=== PATIENT | male | born 1950 | race Caucasian/White ===

== ENCOUNTER 2017-01-25 13:11 | Inpatient (IN) ==
[2017-01-25] MEDS ORDERED: *HR* Labetalol 100 MG/20 ML MDV IVP ONE (13:28)
--- NOTE | 2017-01-25 13:32 | Emergency Department Note ---
Disposition Clinical Impression: Dysarthria Disposition: Admitted As Inpatient Condition: Good Referrals: Logan Alicia MD [Primary Care Provider] - Forms: ED Satisfaction Letter, Work/School Release Neuro HPI - General Chief Complaint: ED General Medical Stated Complaint: "tongue felt thick" Time Seen by Provider: 01/25/17 13:13 Source: EMS Limitations: no limitations - History of Present Illness HPI Narrative: 66-year-old male no medical history presents to the ER due to "swollen tongue". Patient states roughly 1 hour prior to arrival he was sitting and felt like his tongue was swollen. He states he also felt disoriented at that time. He states that he went up to get his who reports whenever she saw him that he was slurring words. He was making sense and was able to understand her at that time. He states his right arm felt numb as well. Denies a prior history of CVA or TIA. Denies any other numbness tingling or paresthesias. No headaches. No visual changes. Upon arrival patient was deemed a stroke alert candidate and taken to CT for emergent evaluation. Onset of Symptoms Date: 01/25/17 Onset of Symptoms Time: 12:25 Symptom Onset Unknown: No Location: speech, right arm History of same: No Severity: mild Quality: numbness Symptoms Improving: Yes Improves with: time Worsens with: none Context: sudden onset On Anticoagulants: No Associated symptoms: Reports: denies other symptoms Treatments Prior to Arrival: none - Related Data Home Medications: Home Medications Medication Instructions Recorded Confirmed Gabapentin [Neurontin] 300 mg PO DAILY PRN 01/25/17 01/25/17 Ibuprofen [Ibuprofen] 800 mg PO Q8H PRN 01/25/17 01/25/17 Allergies/Adverse Reactions: Allergies Allergy/AdvReac Type Severity Reaction Status Date / Time No Known Allergies Allergy Verified 01/25/17 13:58 All systems ED: reviewed and negative except as stated. Cardiovascular: Denies: chest pain Respiratory: Denies: dyspnea Gastrointestinal: Denies: abdominal pain Neurological: Reports: numbness. Denies: headache, weakness, paresthesias Past Medical History - Past Medical History Attestation: Yes The following information was validated with the patient. Source: patient Medical history: Reports: no medical history Psychiatric history: Reports: no psych history - Social History Smoking Status: Current every day smoker Smokeless Tobacco Status: No Alcohol use: Reports: occasionally Drug use: Reports: none Physical Exam - General Limitations: no limitations General appearance: alert, in no apparent distress - Head Head exam: atraumatic, normocephalic, normal inspection - Eye Eye exam: Present: normal appearance, PERRL, EOMI - ENT ENT exam: normal exam - Neck Neck exam: Present: normal inspection, full ROM - Chest Chest inspection: Present: normal inspection, symmetric chest wall rise - Respiratory Respiratory exam: Present: normal lung sounds bilaterally - Cardiovascular Cardiovascular exam: Present: regular rate, normal rhythm, normal heart sounds - Abdominal Exam Abdominal exam: Present: soft, Non-Tender. Absent: tenderness, distention, rigidity - Extremities Exam Extremities exam: Present: normal inspection, full ROM - Expanded Upper Extremity Exam Shoulder exam: Present: normal inspection, full ROM Arm exam: Present: normal inspection, full ROM Elbow exam: Present: normal inspection, full ROM Forearm/Wrist exam: Present: normal inspection, full ROM Hand exam: Present: normal inspection, full ROM Vascular exam: Normal: radial pulse - Expanded Lower Extremity Exam Hip/Pelvis exam: Present: normal inspection, full ROM Upper leg exam: Present: normal inspection, full ROM Knee exam: Present: normal inspection, full ROM Lower leg exam: Present: normal inspection, full ROM Ankle exam: Present: normal inspection, full ROM Foot/toe exam: Present: normal inspection, full ROM Neurovascular/Tendon exam: Absent: motor deficit, sensory deficit - Neurological Exam Neurological exam: Present: alert, oriented X3, CN II-XII intact. Absent: motor sensory deficit - Expanded Neurological Exam Patient oriented to: Present: person, place, time Speech: Present: expressive aphasia (mild dysarthria) Cranial nerves: EOM function (II, III, IV, ): Normal, facial sensation (V): Normal, spinal accessory function (XI): Normal, tongue deviation (XII): Normal Cerebellar function: finger to nose: Normal, heel to rashid: Normal Motor strength - LUE: 5/5 Motor strength - RUE: 5/5 Motor strength - LLE: 5/5 Motor strength - RLE: 5/5 Sensory exam upper extremity: light touch: Normal Sensory exam lower extremity: light touch: Normal Coma Scale Eye Opening: Spontaneous Coma Scale Motor Response: Obeys Commands Coma Scale Verbal Response: Oriented Coma Scale Total: 15 - Psychiatric Psychiatric exam: Present: normal affect - Skin Skin exam: Present: warm, dry, intact Course Course Narrative: Patient seen and examined. NIH of 1 given his mild dysarthria. Stroke alert called. He is also profoundly hypertensive here. Taken to CT scan for evaluation. - Reevaluation(s) Reevaluation #1: Patient evaluated by [facility] stroke neurologist. We agree that his symptoms are improving and the risks of TPA administration outweigh the potential benefit. Family understands and is in agreement with this plan. His hypertension has resolved here without intervention. He is in agreement with being admitted here for neurologic evaluation. - Consultations Consultation #1: I spoke with the on-call stroke neurologist at [facility]. Discussed the patient's history exam and interventions today. They agreed to see the patient by tele- robot. Vital Signs Temperature 98.3 F 01/25/17 13:13 Pulse Rate 59 01/25/17 13:13 Respiratory Rate 16 01/25/17 13:13 Blood Pressure 195/113 01/25/17 13:13 O2 Sat by Pulse Oximetry 99 01/25/17 13:13 Temperature 98.3 F 01/25/17 13:13 Pulse Rate 61 01/25/17 13:53 Respiratory Rate 18 01/25/17 13:53 Blood Pressure 168/89 01/25/17 13:53 O2 Sat by Pulse Oximetry 96 01/25/17 13:38 Oxygen Delivery Oxygen Delivery Room Air Neuro Symptoms/Deficit - MDM Narrative Medical decision making narrative: 66-year-old male presents to the ER due to dysarthria and right upper extremity weakness. Abrupt onset roughly 1 hour prior to arrival. No history of CVA or TIA in the past. He had an initial NIH of 1 here. Profoundly hypertensive which resolved without intervention. CT scan images no acute abnormalities. Case discussed with evaluation by [facility] stroke neurologist with no recommendation for TPA given his improved symptoms while here in the department. Patient agreeable with staying here for admission and neurologic evaluation. - Lab Data Lab results reviewed: Yes I reviewed the patient's lab results. Result diagrams: 01/25/17 13:32 01/25/17 13:32 Lab Results 01/25/17 01/25/17 01/25/17 Range/Units 13:32 13:32 13:32 WBC 8.9 (4.3-11.1) K/mcL RBC 4.23 (4.19-5.50) M/mcL Hgb 14.4 (12.9-16.9) g/dL Hct 42.2 (37.5-50.1) % MCV 99.8 (83.0-100.0) fL MCH 34.0 H (28.0-33.3) pg MCHC 34.1 (31.6-35.5) g/dL RDW 13.1 (11.5-14.5) % Plt Count 283 (140-400) K/mcL MPV 10.0 (9.4-12.4) fL Immature Gran % 0.2 (0-4) % Seg Neutrophils % 62.1 % Lymphocytes % 26.9 % Monocytes % 7.4 % Eosinophils % 2.8 % Basophils % 0.6 % Neutrophils # 5.5 (1.6-8.9) K/mcL Lymphocytes # 2.4 (0.6-4.6) K/mcL Monocytes # 0.7 (0.0-1.3) K/mcL Eosinophils # 0.3 (0.0-0.6) K/mcL Basophils # 0.1 (0.0-0.2) K/mcL Immature Plt Fraction 5.5 (1.1-6.1) % PT 11.6 (9.4-12.1) Seconds INR 1.1 APTT 31.3 (26.0-36.0) Seconds Sodium 141 (136-145) mEq/L Potassium 3.7 (3.5-4.5) mEq/L Chloride 108 (98-109) mEq/L Carbon Dioxide 26 (19-29) mEq/L BUN 14 (8-26) mg/dL Creatinine 0.79 (0.72-1.25) mg/dL Est GFR ( Amer) > 60 (> 60) Est GFR (Non-Af Amer) > 60 (> 60) BUN/Creatinine Ratio 18 (6-26) Glucose 113 H (70-99) mg/dL POC Glucose (58-89) Calculated Osmolality 293 (280-300) Calcium 9.3 (8.6-10.8) mg/dL Troponin I (0-0.03) ng/mL 01/25/17 01/25/17 Range/Units 13:32 13:37 WBC (4.3-11.1) K/mcL RBC (4.19-5.50) M/mcL Hgb (12.9-16.9) g/dL Hct (37.5-50.1) % MCV (83.0-100.0) fL MCH (28.0-33.3) pg MCHC (31.6-35.5) g/dL RDW (11.5-14.5) % Plt Count (140-400) K/mcL MPV (9.4-12.4) fL Immature Gran % (0-4) % Seg Neutrophils % % Lymphocytes % % Monocytes % % Eosinophils % % Basophils % % Neutrophils # (1.6-8.9) K/mcL Lymphocytes # (0.6-4.6) K/mcL Monocytes # (0.0-1.3) K/mcL Eosinophils # (0.0-0.6) K/mcL Basophils # (0.0-0.2) K/mcL Immature Plt Fraction (1.1-6.1) % PT (9.4-12.1) Seconds INR APTT (26.0-36.0) Seconds Sodium (136-145) mEq/L Potassium (3.5-4.5) mEq/L Chloride (98-109) mEq/L Carbon Dioxide (19-29) mEq/L BUN (8-26) mg/dL Creatinine (0.72-1.25) mg/dL Est GFR ( Amer) (> 60) Est GFR (Non-Af Amer) (> 60) BUN/Creatinine Ratio (6-26) Glucose (70-99) mg/dL POC Glucose 118 H (58-89) Calculated Osmolality (280-300) Calcium (8.6-10.8) mg/dL Troponin I 0.02 (0-0.03) ng/mL - Radiology Data Radiology results reviewed: Yes I reviewed the patient's radiology results. Head CT 01/25/17 13:23 IMPRESSION: No acute intracranial abnormality. Patchy small vessel white matter ischemic changes. Findings called to Glynn Izaguirre on 01/25/2017 at 1:40 p.m. D/ / Roberto Gregory MD / Roberto Gregory MD Interpreting Provider: Roberto Gregory MD Stroke Scale - Level of Consciousness LOC: Alert - LOC Questions LOC Questions: Answers both correctly - LOC Commands LOC Commands: Performs both correctly - Best Gaze Best Gaze: Normal - Visual Visual: No visual loss - Facial Palsy Facial Palsy: Normal - Motor Arms Motor Arm-Left: No drift for 10 seconds Motor Arm-Right: No drift for 10 seconds - Motor Legs Motor Leg-Left: No drift for 5 seconds Motor Leg-Right: No drift for 5 seconds - Limb Ataxia Limb Ataxia: Absent of affected limb too weak to perform exam - Sensory Sensory: Normal - Best Language Best Language: No aphasia - Dysarthria Dysarthria: Mild, slurs some words - Extinction and Inattention Extinction and Inattention: Normal - NIHSS Total Score NIHSS Total Score: 1 TPA Checklist - LKW: 3-4.5 hrs Add. Warnings/Precautions Patient/family understanding: The patient/family members have been counseled and understood the risk, benefit , and alternatives of treatment. Ashlie - Ashlie Situation: Demographics, MOA Background: Presenting Complaint, Relevant PMH, Meds, & Allergies Assessment: Course and respsone to treatment, Patient/Family Expectation, Pertinant Lab Results Recommendation: Barrier(s) to disposition, Recommendation based on pending studies, treatments, or consults Ashlie Report Given to: Dr. Genesis Dailey Repor Time: 14:39
[2017-01-25 13:38] LABS: Basophils # 0.1 K/mcL (0.0-0.2); Basophils % 0.6 %; Eosinophils # 0.3 K/mcL (0.0-0.6); Eosinophils % 2.8 %; Hematocrit 42.2 % (37.5-50.1); Hemoglobin 14.4 g/dL (12.9-16.9); Immature Granulocytes % 0.2 % (0-4); Immature Platelets 5.5 % (1.1-6.1); Lymphocytes # 2.4 K/mcL (0.6-4.6); Lymphocytes % 26.9 %; Mean Corpuscular HGB Conc 34.1 g/dL (31.6-35.5); Mean Corpuscular Volume 99.8 fL (83.0-100.0); Monocytes # 0.7 K/mcL (0.0-1.3); Monocytes % 7.4 %; Neutrophils # 5.5 K/mcL (1.6-8.9); Platelet Count 283 K/mcL (140-400); Red Blood Count 4.23 M/mcL (4.19-5.50); Red Cell Distribution Width 13.1 % (11.5-14.5); Segmented Neutrophils % 62.1 %
[2017-01-25 13:42] LABS: INR 1.1; Prothrombin Time 11.6 Seconds (9.4-12.1)
--- NOTE | 2017-01-25 13:44 | Emergency Department Note ---
START Narrative - START START: I examined this patient and my medical decision-making was reviewed with the Resident Physician. I agree with the documented findings, disposition and treatment plan as described except to the extent set forth below. 66 year old male states that about one hour he started to experincing "numbness/ thickness" to his tongue and states that he had slurred speech although he could understand her and she could undertand him although the words are slurred which have improved. Ally staet that last night he may have experienced an inablity to hold the remote with his right hand although that has improved. We have called a sTROKE ALERT. HCT (-) for intracranila bleed. [facility] neurolgoist has been consultted
[2017-01-25 13:45] LABS: Activated Partial Thrombo Time 31.3 Seconds (26.0-36.0)
[2017-01-25 13:50] LABS: BUN/Creatinine Ratio 18 (6-26); Blood Urea Nitrogen 14 mg/dL (8-26); Calcium 9.3 mg/dL (8.6-10.8); Carbon Dioxide 26 mEq/L (19-29); Chloride 108 mEq/L (98-109); Glucose 113 mg/dL (70-99); Osmolality,Calculated 293 (280-300); Potassium 3.7 mEq/L (3.5-4.5); Sodium 141 mEq/L (136-145); eGFR For African Americans > 60 (> 60); eGFR For Non-African Americans > 60 (> 60)
[2017-01-25] MEDS ORDERED: Aspirin 81 MG TAB.CHEW PO ONE (14:31)
[2017-01-25] MEDS ORDERED: Acetaminophen 325 MG TABLET PO PRN (17:33)
[2017-01-25] MEDS ORDERED: Naloxone 0.4 MG/ML INJ IVP PRN (17:33)
[2017-01-25] MEDS ORDERED: Gabapentin 300 MG CAPSULE PO PRN (17:37)
--- NOTE | 2017-01-25 17:44 | Internal Med History&Physical ---
Date of Encounter: 01/25/17 Time of Encounter: 17:40 Assessment and Plan (1) TIA (transient ischemic attack) Current visit: Yes Status: Acute 66/male No significant past medical history. Has a history of mild backache for which he is on gabapentin Was working this morning on computer. Between 11:30 AM and known he realizes that he has a slurred speech/weakness/ deviation of angle of mouth. Was brought to the emergency room by squad. Evaluated by emergency room and stroke code was called. CT head: Negative for any acute intracranial abnormality. Patient was seen by [facility]. Telemetry neurology department. No TPA recommended. Plan: Admit as inpatient: Patient needs frequent neuro checks and further workup for possible TIA. Neuro checks as ordered Aspirin/Lipitor. Lipid panel/CBC/CMP/coagulation studies tomorrow morning Echocardiogram Ultrasound carotid. MRI brain I have discussed this plan with the patient at length. Patient verbalizes understanding and does not have any questions at the time of conversation. Qualifiers: Transient cerebral ischemia type: unspecified Qualified Code(s): G45.9 - Transient cerebral ischemic attack, unspecified (2) Backache Current visit: Yes Status: Acute Patient is a chronic backache and we will resume his medication for the same. Qualifiers: Back pain location: back pain in unspecified location Chronicity: chronic Back pain laterality: unspecified Qualified Code(s): M54.9 - Dorsalgia, unspecified; G89.29 - Other chronic pain; G89.29 - Other chronic pain (3) DVT prophylaxis Current visit: Yes Status: Acute SCD Medical decision making: This patient has a moderate to severe risk of worsening in spite of being on appropriate medication due to the underlying nature of the disease. Internal Medicine - H&P: HPI Chief complaint: Possible stroke Admitted From: Emergency Dept Plans for Post Hospital Care: Home History of present illness: PCP: Dr. Alicia Brief past medical history: Severe backache for which patient is taking gabapentin. No other medical issues. History of present medical illness: This is a 66-year-old gentleman who was working on his computer this morning. Between 11:30 and noon, patient realizes that he has a sudden onset of heaviness in his tongue. Patient also noticed that his speech was slurred. Patient realizes that he is weak on his right side. The symptoms were really concerned to the patient and his . Because of this sudden onset of symptoms patient's called squad and then became to this hospital's emergency department for further evaluation. Patient denies chest pain, shortness of breath, nausea, vomiting, palpitation, abdominal pain, dizziness and diarrhea. Workup in the emergency room: Patient was evaluated in the emergency room. Basic labs were drawn. Stroke code was called. CT head was done. CT head was negative of any acute intracranial abnormality. Patient was evaluated by [facility] telemetry neurology Department. Apparently as per the patient , he was told that this is an episode which can be treated as a"warning sign" Reason for admission: Possibility of a TIA to rule out CVA. NI HSS score upon admission is 0 Family history: Non-contributory Of note: I have examined this patient in room 3B 37. Past Med Surg Social Fam HX - Past Medical History Medical history: no medical history Psychiatric history: no psych history - Social History Smoking Status: Current every day smoker Smokeless Tobacco Status: No Alcohol use: occasionally Drug use: none Internal Medicine - H&P: Meds Gabapentin [Neurontin] 300 mg PO DAILY PRN 01/25/17 [History] Ibuprofen [Ibuprofen] 800 mg PO Q8H PRN 01/25/17 [History] 3 Allergy/AdvReac Type Severity Reaction Status Date / Time No Known Allergies Allergy Verified 01/25/17 13:58 All Systems PM: A 10-system review of systems was performed and is negative for pertinent findings except as documented above in the HPI. - Constitutional Constitutional: no chills, no fever(s), no night sweats - EENT Eyes: no change in vision, no discharge, no pain, no photophobia Ears: no ear discharge, no ear pain, no tinnitus Nose, mouth and throat: no dysphagia, no nasal discharge, no neck pain, no sore throat - Cardiovascular Cardiovascular ROS IM: no chest pain, no diaphoresis, no dyspnea, no lightheadedness, no palpitations, no syncope - Respiratory Respiratory: no cough, no dyspnea, no wheezing, no excessive phlegm production - Gastrointestinal Gastrointestinal: no abdominal pain, no diarrhea, no hematemesis, no hematochezia, no melena, no nausea, no vomiting - Musculoskeletal Musculoskeletal ROS IM: no numbness, no tingling - Integumentary Integumentary IM: no rash, no unusual bruising - Neurological Neurological ROS: abnormal speech, behavioral changes, confusion, focal weakness , numbness, tingling, no convulsions, no tremor(s) - Hematologic/Lymphatic Hematologic/Lymphatic: no easy bruising - Constitutional Vitals: Temp Pulse Resp BP Pulse Ox 98.2 F 54 16 157/80 95 01/25/17 16:08 01/25/17 16:08 01/25/17 16:08 01/25/17 16:08 01/25/17 16:08 General appearance: Present: A&O X 3, pleasant, no acute distress, answers questions appropriately - Head Head exam: Present: atraumatic, normocephalic - Eye Eye exam: Present: PERRL, conjuntiva pink, sclera anicteric Pupils: Present: PERRL - Neck Neck exam general surgery: Present: supple, trachea midline. Absent: lymphadenopathy - Respiratory Respiratory exam: Present: CTAB. Absent: accessory muscle use, rales, rhonchi, wheezes - Cardiovascular Cardiovascular exam: Present: RRR, +S1, +S2. Absent: diastolic murmur, gallop, rubs, systolic murmur - GI/Abdominal GI/Abdominal exam: Present: normal bowel sounds, soft, no peritoneal signs. Absent: distended, tenderness - Extremities Exam Extremities exam: Present: warm, radial pulses palpable and symmetrical. Absent : calf tenderness, cyanotic, pedal edema - Neurological Exam Neurological exam: Present: CN II-XII intact, oriented X3, no focal deficits. Absent: pronater drift, facial droop, speech deficit - Skin Skin exam: Present: dry, intact Internal Med - H&P Results - Labs CBC & Chem 7: 01/25/17 13:32 01/25/17 13:32 Labs: All lab results discussed with the emergency room physician.
[2017-01-26 01:06] LABS: Basophils # 0.1 K/mcL (0.0-0.2); Basophils % 0.8 %; Eosinophils # 0.4 K/mcL (0.0-0.6); Eosinophils % 4.5 %; Hematocrit 41.2 % (37.5-50.1); Hemoglobin 14.1 g/dL (12.9-16.9); Immature Granulocytes % 0.1 % (0-4); Lymphocytes # 2.7 K/mcL (0.6-4.6); Lymphocytes % 33.8 %; Mean Corpuscular HGB Conc 34.2 g/dL (31.6-35.5); Mean Corpuscular Hemoglobin 33.7 pg (28.0-33.3); Mean Corpuscular Volume 98.3 fL (83.0-100.0); Mean Platelet Volume 10.4 fL (9.4-12.4); Monocytes # 0.7 K/mcL (0.0-1.3); Monocytes % 8.6 %; Neutrophils # 4.2 K/mcL (1.6-8.9); Platelet Count 268 K/mcL (140-400); Red Blood Count 4.19 M/mcL (4.19-5.50); Red Cell Distribution Width 13.1 % (11.5-14.5); Segmented Neutrophils % 52.2 %
[2017-01-26 01:24] LABS: Alanine Aminotransferase 16 Units/L (0-55); Albumin 3.3 g/dL (3.5-5.0); Albumin/Globulin Ratio 1.1 (1.1-2.2); Alkaline Phosphatase 102 Units/L (38-126); Aspartate Amino Transferase 17 Units/L (5-34); BUN/Creatinine Ratio 19 (6-26); Bilirubin,Total 0.6 mg/dL (0.2-1.2); Blood Urea Nitrogen 14 mg/dL (8-26); Calcium 9.3 mg/dL (8.6-10.8); Carbon Dioxide 24 mEq/L (19-29); Chloride 107 mEq/L (98-109); Chol/HDL Ratio 4.4 (0-4.9); Cholesterol 171 mg/dL (< 200); Globulin 3.1 g/dL (2.4-3.5); Glucose 85 mg/dL (70-99); HDL Cholesterol 39 mg/dL (40-59); INR 1.1; LDL Cholesterol,Calculated 104 mg/dL (0-99); Osmolality,Calculated 288 (280-300); Phosphorous 3.2 mg/dL (2.3-4.7); Potassium 3.8 mEq/L (3.5-4.5); Prothrombin Time 11.6 Seconds (9.4-12.1); Sodium 139 mEq/L (136-145); Total Protein 6.4 g/dL (6.0-8.3); Triglycerides 141 mg/dL (< 150); eGFR For African Americans > 60 (> 60); eGFR For Non-African Americans > 60 (> 60)
[2017-01-26 01:27] LABS: Activated Partial Thrombo Time 30.9 Seconds (26.0-36.0)
[2017-01-26] MEDS: Aspirin Enteric Coated 81 MG Tablet PO SCH (10:39)
--- NOTE | 2017-01-26 18:11 | Electrocardiograph Report ---
[address] [place], [place] [address] Test Date: 2017-01-25 Pat Name: Miguel Odom Department: [id number] Room: 3B37 Gender: M Precision Lathe Operator: TMR : 1950 Requested By: Glynn Izaguirre Order Number: [id number] Reading MD: Guzman Jacobson MD Measurements Intervals [place] Rate: 51 P: 33 [place]: 152 QRS: 7 QRSD: 108 T: 52 QT: 419 QTc: 395 Interpretive Statements SINUS BRADYCARDIA INCOMPLETE RIGHT BUNDLE BRANCH BLOCK Electronically Signed On 01-26-2017 18:09:41 EST by Guzman Jacobson MD
--- NOTE | 2017-01-26 18:13 | Internal Med Progress Note ---
Date of Encounter: 01/26/17 Time of Encounter: 13:00 - Assessment and plan (1) CVA (cerebral vascular accident) Status: Acute Assessment and plan: Patient presented with facial droop, dysarthria and weakness, currently resolved. CT head showed no acute abnormality. MRI brain showed findings small punctate infarcts in left parietal lobe in left MCA territory. Carotid Doppler showed significant stenosis in left ICA-ET to 99%. Follow-up echocardiogram. He should has been started on aspirin and statin. Lipid profile noted to be within normal limits. Case discussed with neurology, recommended adding Plavix and vascular surgery consult. Vascular surgery consulted, recommended outpatient follow-up for carotid endarterectomy in 4-6 weeks. Qualifiers: CVA mechanism: embolism Precerebral and cerebral artery: middle cerebral artery Laterality of affected vessel: left Qualified Code(s): I63.412 - Cerebral infarction due to embolism of left middle cerebral artery (2) Tobacco abuse Status: Chronic Assessment and plan: Smoking cessation counseling done for 4 minutes. Patient was explained about the harmful effects of smoking, especially with his critical carotid artery stenosis and current CVA. He verbalized understanding but is not too motivated to quit smoking at this time. Will use nicotine transdermal patch as needed. - Subjective Interval history: Feels better; resolved dysarthria, facial droop and confusion; no difficulty swallowing or speaking at this time; no blurred vision, focal weakness; - Constitutional Vitals: Temp Pulse Resp BP Pulse Ox 98.1 F 54 16 148/74 94 01/26/17 15:25 01/26/17 15:25 01/26/17 15:25 01/26/17 15:25 01/26/17 15:25 General appearance: Present: A&O X 3, answers questions appropriately - Respiratory Respiratory exam: Present: CTAB. Absent: accessory muscle use, rales, rhonchi, wheezes - Cardiovascular Cardiovascular exam: Present: RRR, +S1, +S2. Absent: diastolic murmur, gallop, rubs, systolic murmur - GI/Abdominal GI/Abdominal exam: Present: normal bowel sounds, soft, no peritoneal signs. Absent: distended, tenderness - Extremities Exam Extremities exam: Present: full ROM, warm, radial pulses palpable and symmetrical. Absent: calf tenderness, cyanotic, pedal edema - Neurological Exam Neurological exam: Present: CN II-XII intact, oriented X3, no focal deficits. Absent: pronater drift, facial droop, speech deficit Internal Medicine: Result - Labs CBC & Chem 7: 01/27/17 02:45 01/27/17 02:45 Labs: Short CBC 01/26/17 Range/Units 00:12 WBC 8.0 (4.3-11.1) K/mcL Hgb 14.1 (12.9-16.9) g/dL Hct 41.2 (37.5-50.1) % Plt Count 268 (140-400) K/mcL Neutrophils # 4.2 (1.6-8.9) K/mcL BMP 01/26/17 00:12 Sodium 139 Potassium 3.8 Chloride 107 Carbon Dioxide 24 BUN 14 Creatinine 0.75 Glucose 85 Calcium 9.3 Cardiac Enzymes 01/25/17 01/26/17 01/26/17 Range/Units 17:52 00:12 05:55 Troponin I 0.01 0.02 0.01 (0-0.03) ng/mL Liver Function 01/26/17 Range/Units 00:12 Total Bilirubin 0.6 (0.2-1.2) mg/dL AST 17 (5-34) Units/L ALT 16 (0-55) Units/L Alkaline Phosphatase 102 (38-126) Units/L Albumin 3.3 L (3.5-5.0) g/dL - ABG Interpretation ABG results: PT/INR, D-dimer PT 11.6 Seconds (9.4-12.1) 01/26/17 00:12 - Impressions Impressions Echocardiogram 01/25/17 17:38 Impressions: LVEF 55-60%. Normal LV chamber size, wall thickness and function. Mild left ventricular diastolic dysfunction. Normal right ventricular structure and function. No evidence of PFO with agitated saline contrast. Mild mitral regurgitation. No evidence of pulmonary hypertension. Left Ventricular Wall Motion: Rest Echo Findings All wall segments showed normal motion. Findings: Study Quality * Technically adequate exam. ECG Findings * Sinus bradycardia. Left Ventricle * LVEF 55-60%. * Normal LV chamber size, wall thickness and function. * Mild left ventricular diastolic dysfunction. Right Ventricle * Normal right ventricular structure and function. Left Atrium * Mildly dilated left atrium. Right Atrium * Normal right atrial size. Interatrial Septum * No evidence of PFO by color Doppler. * No evidence of PFO with agitated saline contrast. Aortic Valve * Trileaflet aortic valve with normal function. * No aortic regurgitation. * No aortic stenosis. Mitral Valve * Normal mitral valve structure. * Mild mitral regurgitation. * No mitral stenosis. Tricuspid Valve * Normal tricuspid valve structure and function. * Trace tricuspid regurgitation. * No evidence of pulmonary hypertension. Pulmonic Valve * Normal pulmonic valve structure and function. * Trace pulmonic regurgitation. Aorta * Normally sized aortic root. Pericardium * The pericardium appears normal. IVC * Normal IVC dimensions and inspiratory collapse. Pulmonary Artery * Normal visualized portions of the main pulmonary artery. Brain MRI 01/26/17 17:39 IMPRESSION: Approximately 5 punctate areas of restricted diffusion in the left parietal lobe suggesting an acute to subacute area of infarct in the left middle cerebral artery territory. No other areas of restricted diffusion are identified. [id number] chronic small vessel ischemic changes. Mild opacification of the mastoid air cells bilaterally. D/ / 01/26/2017 10:45:12 Oxana Manning MD / [facility] Interpreting Provider: Oxana Manning MD Consult Discharge Plan - Plan Instructions: Warfarin (By mouth), Carotid Artery Disease (DC), Ischemic Stroke (DC) Additional Instructions: F/up with PCP in 1-2 weeks F/up with Anticoagulation clinic in 3-4 days F/up with Vascular surgery in 3-4 weeks Referrals: Logan Alicia MD [Primary Care Provider] - (Appointment has been web requested ; our offices will call you with an appointment time and date. Thank You.) Prescriptions: Enoxaparin [Lovenox *PHARMACY WT BASED*] 70 mg SQ Q12HCO 7 Days mg Aspirin Enteric Coated [Aspirin EC] 81 mg PO DAILY #30 tablet. Atorvastatin [Lipitor] 40 mg PO HS #30 tablet Warfarin [Coumadin] 5 mg PO 1800 #15 tablet
--- NOTE | 2017-01-26 18:32 | Vascular/Endovasc Consult Note ---
Date of Encounter: 01/26/17 Time of Encounter: 18:00 Assessment and Plan (1) Stenosis of left internal carotid artery with cerebral infarction Current Visit: Yes Status: Acute The patient had neurologic symptoms longer than 5 minutes. He has evidence of lacunar infarcts along the left middle cerebral artery course. He has 80-99% critical stenosis of the left internal carotid artery. I have recommended left carotid endarterectomy after a period of anticoagulation to allow the infarcts to stabilize. He should follow-up with vascular surgery in 3-4 weeks. - History of Present Illness Consult date: 01/26/17 Consult reason: Carotid artery stenosis Chief complaint: Stroke History of present illness: Mr. Odom is a 66 year old male He sustained a neurologic event at home. He felt hot and dizzy. He experienced aphasia. This resulted in 5-10 minutes. He was transported to the emergency room for evaluation. It was felt at that time that he had residual facial weakness. He was admitted to the hospital. An MRI demonstrated acute and subacute infarcts along the left middle cerebral artery distribution. A follow-up carotid duplex demonstrated 80-99% stenosis at the origin of the left internal carotid artery. I personally reviewed the duplex evaluation and he does have peak systolic flow velocities of 529 cm/s with diastolic velocities over 200 cm/s. The findings are consistent with thromboembolic event from the carotid stenosis. Because of the acute strokes on MRI, I have recommended a period of anticoagulation with convalescent carotid endarterectomy in 4-6 weeks. Past Med Surg Social Fam HX - Past Medical History Medical history: no medical history Psychiatric history: no psych history - Social History Smoking Status: Current every day smoker Packs per day: 1 1/2 Packs Smokeless Tobacco Status: No Alcohol use: occasionally Drug use: none - Family History Mother Living Status: Age at : 78 Hx Family Cardiac Disorders: No Hx Family Respiratory Disorders: No Hx Family Cancer: No Hx Family GI Disorders: No Hx Family Genitourinary Disorders: No Hx Family Endocrine Disorder: No Hx Family Musculoskeletal Disorders: No Hx Family Neuromuscular Disorders: No Hx Family Neurologic Disorders: No Hx Family HEENT Disorders: No Hx Family Autoimmune Disorders: No Hx Family Reproductive Disorders: No Hx Family Psychosocial Disorders: No Father Living Status: Age at : 78 Hx Family Cardiac Disorders: Yes Hx Family Respiratory Disorders: No Hx Family Cancer: No Hx Family GI Disorders: No Hx Family Genitourinary Disorders: No Hx Family Endocrine Disorder: No Hx Family Musculoskeletal Disorders: No Hx Family Neuromuscular Disorders: No Hx Family Neurologic Disorders: No Hx Family HEENT Disorders: No Hx Family Autoimmune Disorders: No Hx Family Reproductive Disorders: No Hx Family Psychosocial Disorders: No Medications and Allergies Gabapentin [Neurontin] 300 mg PO DAILY PRN 01/25/17 [History] Ibuprofen [Ibuprofen] 800 mg PO Q8H PRN 01/25/17 [History] 3 Allergy/AdvReac Type Severity Reaction Status Date / Time No Known Allergies Allergy Verified 01/25/17 13:58 All Systems Review: A 10-system review of systems was performed and is negative for pertinent findings except as documented above in the HPI. Exam Vital Signs, Last 4 Hours Temp Pulse Resp BP Pulse Ox 01/26/17 15:25 98.1 F 54 16 148/74 94 General: Present: Conversant, No Apparent Distress, Well developed, Well nourished HEENT: Present: Atraumatic, Normocephaly, Trachea midline, Pupils equal Neck: Present: Left Carotid bruit, Other (No tracheal deviation. No adenopathy. ) Cardiac: Present: Reg Rate and Rhythm, Normal S1 and S2, No Murmur Lungs: Present: Normal Breath Sounds, No Wheeze, Rales, Rhonchi Neuro: Present: Alert and responsive, No focal deficits noted, Cranial nerves grossly intact, Motor nerves grossly intact, Sensory nerves grossly intact Abdomen: Present: Soft, Non-tender Vascular: Present: Normal capillary refill, Other (Loud carotid bruit on the left side. Normal carotid pulsation.) Skin: Present: No rashes noted on visualized skin, Other (No evidence of jaundice.) Musculoskeletal: Present: No Chest Wall Tenderness, Other (Normal posture and gait) Consult Discharge Plan - Plan Referrals: Logan Alicia MD [Primary Care Provider] -
[2017-01-26 19:05] LABS: Bilirubin,Urine Negative (Negative); Blood,Urine Negative (Negative); Clarity,Urine Clear (Clear); Color,Urine Yellow (Yellow); Glucose,Urine (UA) Normal (Normal); Ketones,Urine Negative (Negative); Leukocyte Esterase,Urine Negative (Negative); Nitrite,Urine Negative (Negative); Protein,Urine Negative (Neg-Trace); Specific Gravity,Urine 1.018 (1.010-1.025); Urobilinogen,Urine Normal (Normal)
[2017-01-27 03:36] LABS: Basophils # 0.1 K/mcL (0.0-0.2); Basophils % 0.7 %; Eosinophils # 0.4 K/mcL (0.0-0.6); Eosinophils % 5.1 %; Hematocrit 43.2 % (37.5-50.1); Hemoglobin 14.7 g/dL (12.9-16.9); Immature Granulocytes % 0.1 % (0-4); Lymphocytes # 2.6 K/mcL (0.6-4.6); Lymphocytes % 34.9 %; Mean Corpuscular Hemoglobin 33.4 pg (28.0-33.3); Mean Corpuscular Volume 98.2 fL (83.0-100.0); Mean Platelet Volume 10.5 fL (9.4-12.4); Monocytes # 0.6 K/mcL (0.0-1.3); Monocytes % 8.4 %; Neutrophils # 3.8 K/mcL (1.6-8.9); Platelet Count 262 K/mcL (140-400); Red Cell Distribution Width 12.8 % (11.5-14.5); Segmented Neutrophils % 50.8 %
[2017-01-27 03:46] LABS: Hemoglobin A1C 5.3 %
[2017-01-27 03:50] LABS: BUN/Creatinine Ratio 23 (6-26); Blood Urea Nitrogen 18 mg/dL (8-26); Calcium 9.2 mg/dL (8.6-10.8); Carbon Dioxide 25 mEq/L (19-29); Chloride 108 mEq/L (98-109); Glucose 96 mg/dL (70-99); Osmolality,Calculated 290 (280-300); Potassium 4.1 mEq/L (3.5-4.5); Sodium 139 mEq/L (136-145); eGFR For African Americans > 60 (> 60); eGFR For Non-African Americans > 60 (> 60)
[2017-01-27] MEDS: Aspirin Enteric Coated 81 MG Tablet PO SCH (09:07)
[2017-01-27 10:42] VITALS: BP 138/80
--- NOTE | 2017-01-27 11:54 | Neurology - Consult Note ---
Date of Encounter: 01/27/17 Time of Encounter: 09:20 Assessment and Plan (1) CVA (cerebral vascular accident) Current Visit: Yes Status: Acute This patient noted to have an acute infarct in his left MCA distribution most of them are punctate and likely embolic in nature luckily enough patient did not have any residual deficit he seems to be back to his baseline and his starting his speech is improved at the same time he has no focal motor or sensory deficit. Currently he is on aspirin and Plavix. Suggest that he should continue on statin as well. Patient did not have any significant motor sensory deficit do not think that he would require any physical therapy evaluation needed he would need any rehabilitation Qualifiers: CVA mechanism: embolism Precerebral and cerebral artery: middle cerebral artery Laterality of affected vessel: left Qualified Code(s): I63.412 - Cerebral infarction due to embolism of left middle cerebral artery (2) Stenosis of left internal carotid artery with cerebral infarction Current Visit: Yes Status: Acute This patient was noted to have a critical stenosis of the left internal carotid artery along with evidence of a stroke in the left cerebral hemisphere without any significant clinical residual deficit on examination. Patient has been evaluated by vascular surgery recommended endarterectomy in the next few week currently is on antiplatelet therapy with aspirin and Plavix along with the statin. At this time consult remains that patient has high risks for stroke due to the fact of this critical stenosis, My suggestion that patient should be anticoagulated instead of antiplatelet therapy until his carotid endarterectomy. We will follow recommendation from vascular surgery and will discuss with them. History of Present Illness HPI: Mr. Odom is a 66 year old male admitted with some slurred speech as well as feeling thickness in his tounge, according to the patient he was working on his computer and then he realized sudden onset of heaviness in his tongue. Patient also noticed that his speech was slurred. At the same time he has noticed that he has slight weakness of his left side and because of his symptoms he called the squad and came into the emergency room. Patient denies chest pain, shortness of breath, nausea, vomiting, palpitation, abdominal pain, dizziness and diarrhea. During the emergency room CT scan of the head was negative he was also evaluated by [facility] telemetry stroke and as he did not have any residual symptoms he was not a TPA candidate and he was admitted for the stroke workup . He had an MRI of the brain that shows an evidence of acute stroke, approximately 5 punctate areas of restricted diffusion in the left parietal lobe suggesting an acute to subacute area of infarct in the left middle cerebral artery territory. [id number] chronic small vessel ischemic changes. His carotid duplex shows no evidence of critical stenosis in his left ICA with 80-99% stenosis. Past Med Surg Social Fam HX - Past Medical History Medical history: no medical history Psychiatric history: no psych history - Social History Smoking Status: Current every day smoker Packs per day: 1 1/2 Packs Smokeless Tobacco Status: No Alcohol use: occasionally Drug use: none - Family History Mother Living Status: Age at : 78 Hx Family Cardiac Disorders: No Hx Family Respiratory Disorders: No Hx Family Cancer: No Hx Family GI Disorders: No Hx Family Genitourinary Disorders: No Hx Family Endocrine Disorder: No Hx Family Musculoskeletal Disorders: No Hx Family Neuromuscular Disorders: No Hx Family Neurologic Disorders: No Hx Family HEENT Disorders: No Hx Family Autoimmune Disorders: No Hx Family Reproductive Disorders: No Hx Family Psychosocial Disorders: No Father Living Status: Age at : 78 Hx Family Cardiac Disorders: Yes Hx Family Respiratory Disorders: No Hx Family Cancer: No Hx Family GI Disorders: No Hx Family Genitourinary Disorders: No Hx Family Endocrine Disorder: No Hx Family Musculoskeletal Disorders: No Hx Family Neuromuscular Disorders: No Hx Family Neurologic Disorders: No Hx Family HEENT Disorders: No Hx Family Autoimmune Disorders: No Hx Family Reproductive Disorders: No Hx Family Psychosocial Disorders: No Medications and Allergies Gabapentin [Neurontin] 300 mg PO DAILY PRN 01/25/17 [History] Ibuprofen [Ibuprofen] 800 mg PO Q8H PRN 01/25/17 [History] 3 Allergy/AdvReac Type Severity Reaction Status Date / Time No Known Allergies Allergy Verified 01/25/17 13:58 All Systems: A 10-system review of systems was performed and is negative for pertinent findings except as documented above in the HPI. Physical Examination - Vital Signs Vital Signs: Initial Vital Signs Temp Pulse Resp BP Pulse Ox 98.3 F 59 16 195/113 99 01/25/17 13:13 01/25/17 13:13 01/25/17 13:13 01/25/17 13:13 01/25/17 13:13 - Neurologic Detailed motor examination: full strength in all major muscle groups Motor examination - right side: 5/5: deltoids, biceps, triceps, wrist flexion, wrist extension, dressing room porter, hip flexors, tibialis Anterior, quadriceps, toe extension (EHL), plantarflexion Motor examination - left side: 07/14: deltoids, biceps, triceps, wrist flexion, wrist extension, hip flexors, dressing room porter, quadriceps, tibialis Anterior, toe extension (EHL), plantarflexion Mental Status Examination: awake, alert, oriented to person, oriented to place, oriented to time, follows commands appropriately, answers questions appropriately, no agnosia, no aphasia, no aproxia Cranial nerve examination: PERRL, EOMI, visual hutson intact, corneal reflexes brisk symmetrically, sensory to face intact, mastication intact, no facial asymmetry is present, no dysarthria, hearing is intact symmetrically, soft palate elevates bilaterally upon phonation, gag reflex intact, flexes SCM and trapezius muscles symmetrically with full power, tongue protrudes midline, no atrophy or facial fasiculations present Cerebellar examination: no dysmetria, performs finger to nose and heel to rashid symmetrically without ataxia, no gait ataxia, no truncal ataxia, no difficulty with rapid alternating movements Results - Laboratory Findings CBC and BMP: 01/27/17 02:45 01/27/17 02:45 Abnormal lab findings: Abnormal lab results MCH 33.4 pg (28.0-33.3) H 01/27/17 02:45 POC Glucose 118 (58-89) H 01/25/17 13:37 Albumin 3.3 g/dL (3.5-5.0) L 01/26/17 00:12 LDL Cholesterol, Calc 104 mg/dL (0-99) H 01/26/17 00:12 HDL Cholesterol 39 mg/dL (40-59) L 01/26/17 00:12 - Diagnostic Findings Additional findings: MRI of the brain showed 5 punctate areas of restricted diffusion in the left parietal lobe suggesting an acute to subacute area of infarct in the left middle cerebral artery territory. No other areas of restricted diffusion are identified.[id number] chronic small vessel ischemic changes. Carotid duplex shows evidence of critical stenosis in the left ICA Consult Discharge Plan - Plan Referrals: Logan Alicia MD [Primary Care Provider] - (Appointment has been web requested ; our offices will call you with an appointment time and date. Thank You.)
--- NOTE | 2017-01-27 13:19 | Vascular/Endovas Progress Note ---
Date of Encounter: 01/27/17 Time of Encounter: 13:10 - Assessment and plan (1) Stenosis of left internal carotid artery with cerebral infarction Current Visit: Yes Status: Acute The patient had neurologic symptoms longer than 5 minutes. He has evidence of lacunar infarcts along the left middle cerebral artery course. He has 80-99% critical stenosis of the left internal carotid artery. I have recommended left carotid endarterectomy after a period of anticoagulation to allow the infarcts to stabilize. He should follow-up with vascular surgery in 3-4 weeks. 01/27/2017. The patient has no neurologic residual deficit. I have recommended convalescent left carotid endarterectomy. Neurology has recommended Coumadin rather than aspirin and Plavix. I think this is reasonable. Follow-up with vascular surgery in 3 weeks - Subjective Interval history: The patient has known residual neurologic deficit from his lacunar infarcts along the middle cerebral artery. He is currently on antiplatelet therapy however neurology has recommended formal anticoagulation with Coumadin therapy I think this is completely reasonable he should follow up with vascular surgery in 3 weeks with convalescent carotid endarterectomy in 4-6 weeks. Vital Signs, Last 4 Hours Temp Pulse Resp BP Pulse Ox 01/27/17 10:41 98.1 F 58 20 138/80 95 - Physical Examination General: Present: No Apparent Distress Neck: Present: Left Carotid bruit Cardiac: Present: Reg Rate and Rhythm, Normal S1 and S2, No Murmur Lungs: Present: Normal Breath Sounds, No Wheeze, Rales, Rhonchi Neuro: Present: Alert and responsive, No focal deficits noted, Cranial nerves grossly intact, Motor nerves grossly intact, Sensory nerves grossly intact Abdomen: Present: Soft, Non-tender Results 01/27/17 02:45 01/27/17 02:45 Lab Results, Last 24 hours 01/27/17 01/27/17 02:45 02:45 WBC 7.5 Hgb 14.7 Hct 43.2 Plt Count 262 Sodium 139 Potassium 4.1 Chloride 108 Carbon Dioxide 25 BUN 18 Creatinine 0.78 Glucose 96 Calcium 9.2 Consult Discharge Plan - Plan Referrals: Logan Alicia MD [Primary Care Provider] - (Appointment has been web requested ; our offices will call you with an appointment time and date. Thank You.)
[2017-01-27] MEDS ORDERED: *HR* Enoxaparin 80 MG/0.8 ML SYRINGE SQ SCH (15:00)
--- NOTE | 2017-01-27 15:04 | Discharge Summary ---
Date of Encounter: 01/27/17 Time of Encounter: 15:00 - Discharge Diagnosis (1) CVA (cerebral vascular accident) Priority: Primary Status: Acute Qualifiers: CVA mechanism: embolism Precerebral and cerebral artery: middle cerebral artery Laterality of affected vessel: left Qualified Code(s): I63.412 - Cerebral infarction due to embolism of left middle cerebral artery (2) Stenosis of left internal carotid artery with cerebral infarction Priority: Primary Status: Acute - Discharge Medications Prescriptions: Enoxaparin [Lovenox *PHARMACY WT BASED*] 70 mg SQ Q12HCO 7 Days mg Aspirin Enteric Coated [Aspirin EC] 81 mg PO DAILY #30 tablet. Atorvastatin [Lipitor] 40 mg PO HS #30 tablet Warfarin [Coumadin] 5 mg PO 1800 #15 tablet Home Medications: Gabapentin [Neurontin] 300 mg PO DAILY PRN 01/25/17 [History] Aspirin Enteric Coated [Aspirin EC] 81 mg PO DAILY #30 tablet. 01/27/17 [Rx] Atorvastatin [Lipitor] 40 mg PO HS #30 tablet 01/27/17 [Rx] Enoxaparin [Lovenox *PHARMACY WT BASED*] 70 mg SQ Q12HCO 7 Days mg 01/27/17 [Rx ] Warfarin [Coumadin] 5 mg PO 1800 #15 tablet 01/27/17 [Rx] Allergies/Adverse Reactions: 3 Allergy/AdvReac Type Severity Reaction Status Date / Time No Known Allergies Allergy Verified 01/25/17 13:58 Procedures/tests Complete & Pending: Procedures Performed prior 72 hours Category Date Time Status MR head/brain wo con [MR] Routine MRI 01/26/17 17:39 Completed EV carotid duplex imaging BI Routine Y 01/25/17 17:39 Completed EV echocardiogram Routine Y 01/25/17 17:38 Completed Date of admission: 01/25/17 17:33 Primary care physician: Logan Alicia MD Consults: 01/25/17 17:37 Consult to Occupational Therapy [CONS] Routine Comment: Evaluate, develop and implement POC Reason for Consult: TIA/CVA Consult to Physical Therapy [CONS] Routine Comment: Evaluate, develop and implement POC Reason for Consult: TIA/CVA 01/26/17 12:52 Consult to Neurology [CONS] Routine Consulting Provider: Neurology [facility] Reason for Consult: Left MCA/parietal punctate infarcts Call Completed: Yes Consult to Vascular Surgery [CONS] Routine Consulting Provider: V[facility] Reason for Consult: Left ICA 80-99% stenosis Call Completed: Yes Discharging clinician: Simi Ennis Anticipated date of discharge: 01/27/17 - Patient Status Disposition: Home, Self-Care Condition: Good Functional capacity at discharge: independent ambulation Overall status at discharge: patient is progressing back to baseline - Discharge Instructions Instructions: Warfarin (By mouth), Carotid Artery Disease (DC), Ischemic Stroke (DC) Follow Up With: Logan Alicia MD [Primary Care Provider] - (Appointment has been web requested ; our offices will call you with an appointment time and date. Thank You.) Additional Instructions: F/up with PCP in 1-2 weeks F/up with Anticoagulation clinic in 3-4 days F/up with Vascular surgery in 3-4 weeks - Diet and Activity Activity: resume usual activities as tolerated Diet: low fat, low cholesterol Hospital course: Mr. Odom is a 66 year old male with no significant past medical history, with tobacco abuse presents with complaints of right-sided facial droop, slurred speech and weakness. Initial CT head revealed no acute bleed/infarct. Patient was started on telemetry monitoring along with aspirin and statin for possible TIA versus CVA. Basic labs were within normal limits, lipid profile was in acceptable range with LDL cholesterol 104. MRI brain was done which showed at least 5 punctate infarcts in left parietal lobe in the MCA territory. Carotid Doppler revealed critical stenosis of 80-99% in left ICA. Neurology was consulted, recommended anticoagulation with Coumadin for critical stenosis to prevent further strokes. Patient's neurological symptoms or signs resolved since admission and he is able to ambulate independently with no physical therapy needs. Patient was evaluated by vascular surgery, agree with continuation of anticoagulation and recommended to follow up in vascular surgery clinic in 3-4 weeks to scheduled left carotid endarterectomy. Patient has been strongly recommended against smoking cessation and explained that this is a major risk factor for atherosclerosis, CAD, CVA, PAD and multiple cancers including lung cancer. However, patient is currently not motivated to quit smoking. He is otherwise medically stable for discharge. He is being discharged on ASA, Coumadin with bridging Lovenox. Time spent discussing smoking cessation with patient: 3 to 10 minutes - Time Spent with Patient Total time spent providing and/or coordinating discharge services: Greater than 30 minutes (45 min) - Constitutional Vitals: Temp Pulse Resp BP Pulse Ox 98.1 F 58 20 138/80 95 01/27/17 10:41 01/27/17 10:41 01/27/17 10:41 01/27/17 10:41 01/27/17 10:41 General appearance: Present: A&O X 3, answers questions appropriately - Respiratory Respiratory exam: Present: CTAB. Absent: accessory muscle use, rales, rhonchi, wheezes - Cardiovascular Cardiovascular exam: Present: RRR, +S1, +S2. Absent: diastolic murmur, gallop, rubs, systolic murmur
[2017-01-27] MEDS ORDERED: *HR* Warfarin 4 MG TABLET PO ONE ×2 (16:00→18:00)
== END 2017-01-27 16:53 | disposition home or self-care (01) | DRG 65 ==
LOC: 3BNU 13:11 → EMEROO 13:11 → 3BNU 15:00 → SUATTDRO 17:33
PROVIDERS: ADMIT Internal Medicine; ATTEND Internal Medicine

== ENCOUNTER 2017-03-15 06:11 | Inpatient (IN) ==
--- NOTE | 2017-03-14 18:02 | Anesthesia Evaluation PreOp ---
Date of Encounter: 03/15/17 Time of Encounter: 06:56 - Past History Planned Operation: left CEA Cardiac History: Denies any Significant Hx Pulmonary History: Smoker (last one this morning) BILLING CONTROL CLERK History: CVA (january 2017) Other Medical History: Denies Any Significant HX Anesthesia History: No Prior Anesthetic Complications, Past Anesthesia (rotator cuff, nasal sx, uvuloplasty, AKS) Alcohol Use: occasionally Drug use: none Medications and Allergies Gabapentin [Neurontin] 300 mg PO DAILY 01/25/17 [History] Atorvastatin [Lipitor] 40 mg PO HS #30 tablet 01/27/17 [Rx] Aspirin Enteric Coated [Aspirin EC] 81 mg PO HS 03/15/17 [History] Enoxaparin [Lovenox] 80 mg SQ Q12HR 03/15/17 [History] Warfarin [Coumadin] 5 mg PO TU 03/15/17 [History] Warfarin [Coumadin] 7.5 mg PO SUMOWETHFRSA 03/15/17 [History] 3 Allergy/AdvReac Type Severity Reaction Status Date / Time No Known Allergies Allergy Verified 03/15/17 06:48 - Meds/Allergy Pre-op Review Medications Reviewed: Yes Allergies Reviewed: Yes Beta Blockers on Current Med List: No Anesthesia Results - Labs Laboratory Tests 03/02/17 03/02/17 08:04 08:04 Hgb 14.9 Hct 44.3 Sodium 141 Potassium 4.0 BUN 17 Creatinine 0.76 - Imaging EKG: report reviewed (SINUS BRADYCARDIA INCOMPLETE RIGHT BUNDLE BRANCH BLOCK) Additional studies: stress test 2017: Impression: There is a mild intensity stress perfusion defect involving the apex representing mild ischemia. Pharmacologic stress ECG is negative for ischemia at level of heart rate achieved. Gated EF = 62%. Findings communicated to ordering provider. PFTs: Spirometry shows moderate airway obstructive pattern Following Bronchodilator, there is improvement in FVC by 11%. MVV is decreased. Lung Volumes TLC mildly reduced suggesting restrictive defect. Diffusion Capacity is moderately reduced. Flow Volume Loop: Obstructive Echo 2017: Impressions: LVEF 55-60%. Normal LV chamber size, wall thickness and function. Mild left ventricular diastolic dysfunction. Normal right ventricular structure and function. No evidence of PFO with agitated saline contrast. Mild mitral regurgitation. No evidence of pulmonary hypertension. Anesthesia Exam Selected Entries 03/15/17 06:46 Temperature 98.6 F Pulse Rate 61 Respiratory Rate 18 Blood Pressure 141/71 O2 Sat by Pulse Oximetry 95 - HEENT Pupil (Motor): EOMI Mallampati: III Teeth: Missing Oral Opening: Greater than 3 - BILLING CONTROL CLERK LOC: Oriented BILLING CONTROL CLERK Motor: Normal RUE, Normal LUE, Normal RLE, Normal LLE, Normal Face BILLING CONTROL CLERK Sensory: Normal: RUE, LUE, RLE, LLE, Face - Cardiac Rhythm: Regular Murmur: None - Pulmonary Breath Sounds: bilateral Clear Respiratory Effort: Symmetrical Anesthesia Assess/Plan ASA Score: 3 Modified Steward Scale for Level of Consciousness: Cooperative, oriented, and tranquil Anesthetic Plan: General Monitoring Plan: Standard Monitors, A-Line Recovery Plan: PACU (agrees to GA and a-line)
[2017-03-15] MEDS ORDERED: CeFAZolin Syr 2,000MG/20 ML 2,000 MG/20 ML SYRINGE IVPB ONE (06:35)
[2017-03-15] MEDS ORDERED: Albuterol 2.5 MG/3 ML NEBULIZER IH ONE (06:35)
[2017-03-15] MEDS ORDERED: Heparin 1,000 UNITS/500 mL 500 ML ONE ×2 (06:38→06:55)
[2017-03-15] MEDS ORDERED: Ringers Solution, Lactated 1,000 ML IVC SCH (06:45)
[2017-03-15] MEDS ORDERED: Bupivacaine-MPF 0.25% 10 ML VIAL ONE (06:54)
[2017-03-15] MEDS ORDERED: Water for inj. (sterile) 10 ML IV ONE (06:54)
[2017-03-15] MEDS ORDERED: Protamine Sulfate 50 MG/5 ML VIAL IVP ONE (06:54)
[2017-03-15] MEDS ORDERED: Lidocaine 1% 20 ML MDV ONE (06:55)
[2017-03-15] MEDS ORDERED: Vancomycin 1,000 MG VIAL ONE (06:55)
[2017-03-15] MEDS ORDERED: EPHEDrine 50 MG/ML VIAL ONE (07:09)
[2017-03-15] MEDS ORDERED: *HR* Succinylcholine 200 MG/10 ML VIAL IVP ONE (07:09)
[2017-03-15] MEDS ORDERED: *HR* Midazolam HCl 2 MG/2 ML VIAL ONE (07:09)
[2017-03-15] MEDS ORDERED: *HR* Remifentanil 2 MG VIAL IVP ONE (07:09)
[2017-03-15] MEDS ORDERED: Lidocaine -MPF 4% 5 ML AMPUL ONE (07:09)
[2017-03-15] MEDS ORDERED: *HR* FentaNYL (PF) 100 MCG/2 ML VIAL ONE (07:09)
[2017-03-15] MEDS ORDERED: Ondansetron 4 MG/2 ML VIAL ONE (07:09)
[2017-03-15] MEDS ORDERED: Lidocaine -MPF 2% 2 ML VIAL ONE (07:09)
[2017-03-15] MEDS ORDERED: Dexamethasone 4 MG/ML VIAL ONE (07:09)
[2017-03-15] MEDS ORDERED: *HR* Rocuronium Bromide 50 MG/5 ML VIAL ONE (07:09)
[2017-03-15] MEDS ORDERED: *HR* Phenylephrine 10 MG/ML VIAL ONE (07:09)
[2017-03-15] MEDS ORDERED: *HR* Propofol 200 MG/20 ML VIAL IVP ONE (07:10)
--- NOTE | 2017-03-15 07:28 | History & Physical Report ---
Date of Encounter: 03/15/17 Time of Encounter: 07:25 24 Hour HP Update - Instructions Instructions: If the History and Physical is less than 30 days old and was completed prior to A.M. admission and or procedure and has NOT been updated on calendar day of procedure please complete this update prior to performing procedure. - Update Patient reports changes in Medical Condition: No Changes in examination, assessment, or condition: No Changes in Medication: No Preop tests/diagnostics Reviewed: Yes Surgery Remains Indicated: Yes Consent for Planned Operative Procedure(s) Verified: Yes - Pre-Operative Checklist Preoperative Checklist Indicated: Yes Prophylactic Antibiotic Ordered: Yes (vancomycin due to MRSA risk) Home Medications Include Beta Oscar: No Beta Oscar Taken Today (Day of Surgery): No Beta Oscar Taken Yesterday (Day Prior to Surgery): No Is VTE Prophylaxis Indicated?: Yes
[2017-03-15] MEDS ORDERED: Vancomycin 1,000 MG, Sodium Chloride IRRigation 1,000 ML IR ONE (07:45)
[2017-03-15] MEDS ORDERED: Lacri-Lube 3.5 GM TUBE ONE (08:01)
--- NOTE | 2017-03-15 08:06 | Anesthesia Procedures ---
Date of Encounter: 03/15/17 Time of Encounter: 08:05 Procedures: Anesthesia - Arterial Line Consent obtained: verbal consent Time out performed: Yes Local Anesthetic: Lidocaine 1% (0.2mL intradermal inj.) Size (Gauge): 20 Length (inches): 1 3/4 Technique Used: sterile prep, guide wire technique, direct puncture technique Post-Procedure: line taped into place, dry sterile dressing placed Patient tolerated procedure: well, no complications Complications: none Site: Radial R Vitals: please see anesthesia record Comments: successful on first attempt
[2017-03-15] MEDS ORDERED: Water for inj. (sterile) 20 ML 20 ML IV ONE (08:31)
[2017-03-15] MEDS ORDERED: *HR* Heparin 5,000 UNIT/ML VIAL ONE (08:41)
[2017-03-15] MEDS ORDERED: Vancomycin 1,000 MG in D5% in Water 250 ML IVPB ONE ×2 (08:45→19:00)
[2017-03-15] MEDS ORDERED: *HR* Labetalol 100 MG/20 ML MDV ONE (08:49)
[2017-03-15] MEDS ORDERED: *HR* HYDROmorphone (PF) 1 MG/ML SYRINGE IVP PRN (09:06)
[2017-03-15] MEDS ORDERED: Ondansetron 4 MG/2 ML VIAL IVP ONE (09:06)
[2017-03-15] MEDS ORDERED: *HR* Promethazine 25 MG/ML VIAL IVP PRN (09:06)
[2017-03-15] MEDS ORDERED: *HR* Labetalol 20 MG/4 ML SYRINGE IVP PRN ×2 (09:06→11:36)
--- NOTE | 2017-03-15 10:45 | Operative Note ---
Date of procedure: 03/15/17 Pre-op diagnosis: Symptomatic 80-99% left internal carotid artery stenosis Post-op diagnosis: same Procedure: Left carotid endarterectomy with hemashield patch angioplasty. Complications: None Anesthesia: KERIA Surgeon: Tarik Perez Was there an human resource assistant present: No Estimated blood loss (cc): 50 Specimen: Left carotid endarterectomy Condition: stable Disposition: PACU Procedure in Detail: Indications: The patient is a 66 year old male with a history of hypertension, tobacco abuse and hyperlipidemia who sustained a left hemispheric cerebrovascular accident. He was found to have an 80-99% left internal carotid artery stenosis. A left carotid endarterectomy was recommended to reduce his risk of stroke. Procedure: The patient was identified in the preoperative area. The risks, benefits, and alternatives of the procedure were discussed and all questions were answered. The patient was then taken to the operating room and placed in supine position on the operating table. After induction of general endotracheal anesthesia, the patient was cleaned and draped in normal sterile fashion. A longitudinal incision was made anterior to the left sternocleidomastoid muscle. Hemostasis was obtained via electrocautery. Through a process of blunt , sharp, and electrocautery dissection, the platysma was traversed. The jugular vein was identified. The facial vein was clamped, divided and then tied off with a 2-0 silk suture ligature. The jugular vein was retracted, exposing the carotid bifurcation. Patient received 3000 units of heparin intravenously at this time. Proximal dissection of the common and external carotid arteries were performed circumferentially. Dissection of the internal carotid was performed circumferentially. Vessels loops were passed around the internal and external carotid and an umbilical tape was passed from the common carotid artery. The patient received additional 2000 units of heparin intravenously. After waiting adequate time for it to circulate, the vessels were occluded and a longitudinal arteriotomy was made into the common carotid artery and extended into the internal carotid beyond the plaque. Vigorous pulsatile retrograde flow was noted from the internal carotid artery upon release of the loop; therefore, no shunt was placed. A dental [place] was used to perform a standard endarterectomy. Proximal and distal endpoints were inspected. No elevated flaps were noted. A Hemashield patch was cut to fit the defect and sutured in place with running 6 -0 Prolene. Prior to completing the closure, each vessel was flushed and then reoccluded. Heparinized saline was infused into the lumen. The patch was completed. Flow was restored in the external carotid artery, followed the common carotid artery, lastly the internal carotid artery was opened. A low resistance arterialized signal was present within the internal carotid artery beyond the patch. Thrombin and Gelfoam were used to aid in hemostasis. Meticulous hemostasis was obtained throughout the wound with electrocautery. Platelet rich and platelet poor plasma were infused into the wounds. The sternocleidomastoid was reapproximated with interrupted 3-0 Vicryl. Platelet rich and platelet poor plasma were infused into the wound. A TLS drain was brought through a separate stab incision and sutured in place with 0 silk suture. The platysma was reapproximated with running 3-0 Vicryl. Local anesthetic was infused in the skin. A 3-0 Monocryl was used to reapproximate the skin. Sterile dressing was applied. The patient was extubated, taken to the recovery room in stable condition.
--- NOTE | 2017-03-15 11:00 | Anesthesia Evaluation Post Op ---
Date of Encounter: 03/15/17 Time of Encounter: 10:58 - Vital Signs Vital Signs: Vital Signs/O2 Sat, Most Current Temp Pulse Resp BP Pulse Ox 97.4 F L 63 16 144/75 97 03/15/17 10:35 03/15/17 10:35 03/15/17 10:35 03/15/17 10:35 03/15/17 10:35 - Lungs Lungs: Clear Ascult./Percussion - Airway Airway: Non-obstructed - Cardiovascular Regular Rate - Mental Status Mental Status: Asleep with brisk response to light stimulation - Pain Pain Scale: 0 - Nausea Vomiting Nausea Vomiting: Not Present - Hydration Hydration: NPO, Jimenez catheter - Discharge PostOp Status: Transfer Patient to floor
[2017-03-15] MEDS ORDERED: Naloxone 0.4 MG/ML INJ IVP PRN (11:36)
[2017-03-15] MEDS ORDERED: Ondansetron 4 MG/2 ML VIAL IVP PRN (11:36)
[2017-03-15] MEDS ORDERED: Acetaminophen 325 MG TABLET PO PRN (11:36)
[2017-03-15] MEDS ORDERED: *HR* OxyCODONE Immed Rel 5 MG TABLET PO PRN (11:36)
[2017-03-15] MEDS ORDERED: *HR* Morphine 2 MG/ML SYRINGE IVP PRN (11:36)
[2017-03-15] MEDS: *HR* Metoprolol 5 MG/5 ML VIAL IVP SCH ×2 (12:00→19:11)
[2017-03-15] MEDS: *HR* HYDROcodone/Acet 5/325 mg TABLET PO PRN ×2 (12:13→21:14)
[2017-03-15] MEDS: Gabapentin 300 MG CAPSULE PO SCH (13:15)
[2017-03-15] MEDS: CeFAZolin Premix DUPLEX 2,000 MG/50 ML BAG IVPB SCH (14:52)
[2017-03-15] MEDS ORDERED: *HR* Heparin 5,000 UNIT/ML VIAL SQ SCH (18:00)
[2017-03-15] MEDS ORDERED: Vancomycin 0 MG in D5% in Water 250 ML IVPB ONE (19:00)
[2017-03-15] MEDS ORDERED: Aspirin Enteric Coated 81 MG Tablet PO SCH (21:00)
[2017-03-16] MEDS ORDERED: CeFAZolin Premix DUPLEX 2,000 MG/50 ML BAG IVPB SCH
[2017-03-16] MEDS: CeFAZolin Premix DUPLEX 2,000 MG/50 ML BAG IVPB SCH (01:40)
[2017-03-16] MEDS: *HR* Metoprolol 5 MG/5 ML VIAL IVP SCH ×2 (01:42→05:16)
[2017-03-16] MEDS ORDERED: *HR* Heparin 5,000 UNIT/ML VIAL SQ SCH (06:00)
--- NOTE | 2017-03-16 06:57 | Discharge Summary ---
Date of Encounter: 03/16/17 Time of Encounter: 07:15 - Discharge Diagnosis (1) Carotid stenosis, left Priority: Primary Status: Chronic Comments: The patient is postoperative day #1 after left carotid endarterectomy. He is without complaints. His incision is healing well and he has no hematoma. He has no new neurologic deficits. He will be discharged today. (2) Mixed hyperlipidemia Priority: Secondary Status: Chronic Comments: He was counseled regarding atherosclerotic risk factor reduction. (3) Essential hypertension Priority: Secondary Status: Chronic (4) Tobacco abuse Priority: Secondary Status: Chronic - Discharge Medications Prescriptions: HYDROcodone/Acet 5/325 mg [[place] 5-325 mg] 1 tab PO Q6HR PRN 5 Days #20 tablet PRN Reason: POSTOPERATIVE PAIN Home Medications: Gabapentin [Neurontin] 300 mg PO DAILY 01/25/17 [History] Atorvastatin [Lipitor] 40 mg PO HS #30 tablet 01/27/17 [Rx] Aspirin Enteric Coated [Aspirin EC] 81 mg PO HS 03/15/17 [History] HYDROcodone/Acet 5/325 mg [[place] 5-325 mg] 1 tab PO Q6HR PRN 5 Days #20 tablet 03/16/17 [Rx] Allergies/Adverse Reactions: 3 Allergy/AdvReac Type Severity Reaction Status Date / Time No Known Allergies Allergy Verified 03/15/17 06:48 Date of admission: 03/15/17 11:28 Primary care physician: Logan Alicia MD Procedure(s) Performed: Left carotid endarterectomy Discharging clinician: Tarik Perez Anticipated date of discharge: 03/16/17 - Patient Status Disposition: Home, Self-Care Condition: Good Functional capacity at discharge: independent ambulation Overall status at discharge: patient is back to baseline - Discharge Instructions Follow Up With: Tarik Perez MD [Partnered Physician] - 04/23/17 11:00 am Logan Alicia MD [Primary Care Provider] - 03/22/17 1:00 pm Additional Instructions: MAY REMOVE BANDAGE NAD SHOWER ON 03/17/17. WASH WOUND GENTLY AND PAT TO DRY. NO DRIVING FOR [address] PEREZ AT [phone] WITH QUESTIONS OR CONCERNS. - Diet and Activity Activity: increase activity as tolerated Diet: advance to your usual diet - Hospital Course Hospital course: Mr. Odom is a 66 year old male with symptomatic left internal carotid artery stenosis. He was admitted on 03/15/17 and underwent a left carotid endarterectomy. He tolerated the procedure well. He was discharged on postoperative day #1 in stable condition without complications. Time spent discussing smoking cessation with patient: 3 to 10 minutes - Time Spent with Patient Total time spent providing and/or coordinating discharge services: Exam Vital Signs, Last 4 Hours Temp Pulse Resp BP Pulse Ox 03/16/17 05:02 97.9 F 03/16/17 04:00 58 12 130/80 96 General: Present: Conversant, No Apparent Distress HEENT: Present: Pupils equal Neck: Absent: Tracheal deviation Cardiac: Present: Reg Rate and Rhythm Lungs: Present: Normal Breath Sounds Neuro: Present: Alert and responsive, No focal deficits noted, Motor nerves grossly intact, Sensory nerves grossly intact Vascular: Present: Normal capillary refill, Surgical incisions (Incision clean, dry and intact without erythema or drainage, no hematoma). Absent: Cyanosis, Edema - VTE Documentation of Mechanical Device: Intermittent pneumatic compression device
[2017-03-16 07:21] VITALS: BP 138/80
[2017-03-16] MEDS: Gabapentin 300 MG CAPSULE PO SCH (07:27)
== END 2017-03-16 09:00 | disposition home or self-care (01) | DRG 39 ==
LOC: SAMDAY 06:11 → ICNU 11:28
PROVIDERS: ADMIT Surgery; ATTEND Surgery